=== PATIENT | male | born 1970 | race Caucasian/White ===

== ENCOUNTER 2018-06-18 10:47 | Emergency (ER) | payer MEDICAID ==
[~2018-06-18] VITALS: Ht 177.8 cm; Wt 66.4 kg
[~2018-06-18 10:47] MED LIST: CLIN-12 PO; CLIN300C85 PO; HYDR20OI TP; MUPI15CR TP; MUPI22OI TP; NO HOME MEDS
[2018-06-18 11:18] VITALS: BP 104/72
== END 2018-06-18 13:14 | disposition home or self-care (01) ==
LOC: ER 10:47
DX: S50.851A Superficial foreign body of right forearm, initial encounter (principal); F12.90 Cannabis use, unspecified, uncomplicated; Z59.0 Homelessness; Z56.0 Unemployment, unspecified; Z98.890 Other specified postprocedural states; Z88.6 Allergy status to analgesic agent; Z88.8 Allergy status to other drugs, medicaments and biological substances; Z79.2 Long term (current) use of antibiotics; Z79.899 Other long term (current) drug therapy; W45.8XXA Other foreign body or object entering through skin, initial encounter; Y93.89 Activity, other specified; Y92.89 Other specified places as the place of occurrence of the external cause; Y99.8 Other external cause status
CPT/HCPCS: 99281

== ENCOUNTER 2018-11-24 19:45 | Emergency (ER) | payer MEDICAID ==
[~2018-11-24] VITALS: Ht 177.8 cm; Wt 74.2 kg
[~2018-11-24 19:45] MED LIST changes: +CLIN-96 PO; -CLIN300C85 PO
[2018-11-24 19:53] VITALS: BP 131/81
== END 2018-11-24 21:20 | disposition home or self-care (01) ==
LOC: ER 19:45
DX: J30.2 Other seasonal allergic rhinitis (principal); F17.200 Nicotine dependence, unspecified, uncomplicated; F12.90 Cannabis use, unspecified, uncomplicated; Z56.0 Unemployment, unspecified; Z59.0 Homelessness; Z88.6 Allergy status to analgesic agent; Z79.899 Other long term (current) drug therapy
CPT/HCPCS: 99281

== ENCOUNTER 2019-05-27 19:06 | Emergency (ER) | payer MEDICAID ==
[~2019-05-27] VITALS: Ht 177.8 cm; Wt 68.2 kg
[~2019-05-27 19:06] MED LIST changes: +CLIN-90 PO; -CLIN-96 PO
[2019-05-27 19:16] VITALS: BP 141/74
[2019-05-27] MEDS ORDERED: penicillin G benzathine 1.2 million unit/2ml syringe IM ONE (20:15)
[2019-05-27] MEDS ORDERED: azithromycin 250mg tablet PO ONE (20:15)
[2019-05-27] MEDS ORDERED: CefTRIAXone 1000mg IM Kit (w/lidocaine diluent) IM ONE (20:15)
[2019-05-29 08:10] LABS: RPR Reactive (Non Reactive)
== END 2019-05-27 20:54 | disposition home or self-care (01) ==
LOC: ER 19:07
DX: K40.90 Unilateral inguinal hernia, without obstruction or gangrene, not specified as recurrent (principal); F17.200 Nicotine dependence, unspecified, uncomplicated; F12.90 Cannabis use, unspecified, uncomplicated; Z59.0 Homelessness; Z56.0 Unemployment, unspecified; Z88.6 Allergy status to analgesic agent; Z88.8 Allergy status to other drugs, medicaments and biological substances; Z79.899 Other long term (current) drug therapy
CPT/HCPCS: 36415; 86592; 87491; 87591; 96372; 99283; J0561; J0696

== ENCOUNTER 2022-12-23 20:12 | Emergency (ER) | payer MEDICAID ==
[~2022-12-23] VITALS: Ht 177.8 cm; Wt 61.0 kg
[~2022-12-23 20:12] MED LIST changes: -CLIN-90 PO; +CLIN-97 PO
[2022-12-23] MEDS ORDERED: sulfamethoxazole/trimethoprim DS (800/160mg) tablet PO ONE (21:30)
[2022-12-23] MEDS ORDERED: amox tr/potassium clavulanate 875/125mg TAB PO ONE (21:30)
[2022-12-23 21:56] LABS: BASOPHILS # (AUTO) 0.1 X10'3 (0-0.2); BASOPHILS % (AUTO) 1.5 % (0-1); EOSINOPHILS % (AUTO) 0.3 % (0-6); HEMATOCRIT 37.9 % (42.0-52.0); HEMOGLOBIN 12.7 g/dl (14.0-17.9); LYMPHOCYTES # (AUTO) 1.5 X10'3 (1.1-4.8); LYMPHOCYTES % (AUTO) 24.8 % (21-51); MEAN CORPUSCULAR HGB CONC 33.6 g/dL (33.0-36.5); MEAN CORPUSCULAR VOLUME 89.3 FL (78-98); MEAN PLATELET VOLUME 7.7 FL (7.4-10.4); MONOCYTES # (AUTO) 0.6 X10'3 (0-0.9); MONOCYTES % (AUTO) 10.2 % (2-12); NEUTROPHILS # (AUTO) 3.9 X10'3 (1.8-7.7); NEUTROPHILS % (AUTO) 63.2 % (42-75); PLATELET COUNT 222 X10'3 (140-440); RED BLOOD COUNT 4.25 X10'6 (4.70-6.10); RED CELL DISTRIBUTION WIDTH 13.9 % (11.5-14.5); WHITE BLOOD COUNT 6.1 X10'3 (4.5-11.0)
[2022-12-23] MEDS ORDERED: AMOX-580 PO (22:00)
[2022-12-23] MEDS ORDERED: SULF1TAB49 PO (22:00)
[2022-12-23 22:01] LABS: ALANINE AMINOTRANSFERASE 44 U/L (12-78); ALBUMIN 2.9 G/DL (3.4-5.0); ALKALINE PHOSPHATASE 81 IU/L (46-116); ANION GAP 9 (8-16); ASPARTATE AMINO TRANSFERASE 21 U/L (10-37); BILIRUBIN,TOTAL 0.3 MG/DL (0.1-1.0); BLOOD UREA NITROGEN 18 MG/DL (7-18); BUN/CREATININE RATIO 20.7 (10.0-20.0); CALCIUM 8.5 MG/DL (8.5-10.1); CHLORIDE 101 MMOL/L (99-107); CREATININE 0.87 MG/DL (0.60-1.10); GLUCOSE 134 MG/DL (70-104); POTASSIUM 3.6 MMOL/L (3.5-5.1); SODIUM 139 MMOL/L (135-145); TOTAL CARBON DIOXIDE 28.6 MMOL/L (24-32); TOTAL PROTEIN 5.8 G/DL (6.4-8.2); eGFR > 90 ML/MIN
[2022-12-23 22:12] VITALS: BP 145/95
== END 2022-12-23 22:13 | disposition home or self-care (01) ==
LOC: ER 20:12
DX: L03.113 Cellulitis of right upper limb (principal); F12.90 Cannabis use, unspecified, uncomplicated; Z79.899 Other long term (current) drug therapy; Z59.00 Homelessness unspecified; Z56.0 Unemployment, unspecified; Z98.890 Other specified postprocedural states; Z88.8 Allergy status to other drugs, medicaments and biological substances; Z79.2 Long term (current) use of antibiotics; F17.210 Nicotine dependence, cigarettes, uncomplicated
CPT/HCPCS: 36415; 73090; 80053; 85025; 99284

== ENCOUNTER 2023-01-13 20:43 | Emergency (ER) | payer MEDICAID ==
[~2023-01-13] VITALS: Ht 177.8 cm; Wt 61.0 kg
[~2023-01-13 20:43] MED LIST changes: +AMOX-580 PO
[2023-01-13 20:47] VITALS: BP 137/87
[2023-01-13] MEDS ORDERED: cephalexin 250mg capsule PO ONE (21:15)
[2023-01-13] MEDS ORDERED: bacitracin 15gm ointment TP ONE (21:15)
[2023-01-13] MEDS ORDERED: CEPH-585 PO (21:17)
== END 2023-01-13 21:25 | disposition home or self-care (01) ==
LOC: ER 20:43
DX: L03.113 Cellulitis of right upper limb (principal); L03.114 Cellulitis of left upper limb; L03.115 Cellulitis of right lower limb; L03.116 Cellulitis of left lower limb; F12.90 Cannabis use, unspecified, uncomplicated; Z88.6 Allergy status to analgesic agent; Z88.8 Allergy status to other drugs, medicaments and biological substances
CPT/HCPCS: 99283

== ENCOUNTER 2023-12-26 17:28 | Emergency (ER) | payer MEDICAID ==
[~2023-12-26] VITALS: Ht 177.8 cm; Wt 60.0 kg
[~2023-12-26 17:28] MED LIST changes: -AMOX-580 PO; +CEPH-585 PO
[2023-12-26 17:52] VITALS: BP 107/71; PULSE 53; RESP 16; O2SAT 97
[2023-12-26 18:27] VITALS: TEMP 97.4
== END 2023-12-26 18:31 | disposition home or self-care (01) ==
LOC: ER 17:29
DX: Z00.00 Encounter for general adult medical examination without abnormal findings (principal); Z88.6 Allergy status to analgesic agent; Z79.899 Other long term (current) drug therapy; Z79.2 Long term (current) use of antibiotics
CPT/HCPCS: 99281

== ENCOUNTER 2024-02-12 11:30 | Emergency (ER) | payer MEDICAID ==
[~2024-02-12] VITALS: Ht 172.7 cm; Wt 63.6 kg
[~2024-02-12 11:30] MED LIST changes: -CEPH-585 PO
[2024-02-12 13:51] VITALS: BP 150/89; PULSE 70; RESP 16; TEMP 96.9; O2SAT 99
== END 2024-02-12 13:53 | disposition home or self-care (01) ==
LOC: ER 11:30
DX: B34.9 Viral infection, unspecified (principal); Z20.822 Contact with and (suspected) exposure to COVID-19; F12.90 Cannabis use, unspecified, uncomplicated; Z88.6 Allergy status to analgesic agent; Z88.8 Allergy status to other drugs, medicaments and biological substances; Z79.2 Long term (current) use of antibiotics; Z79.899 Other long term (current) drug therapy
CPT/HCPCS: 36415; 87811; 99283

== ENCOUNTER 2025-03-05 12:48 | Emergency (ER) | payer MEDICAID ==
[~2025-03-05] VITALS: Ht 177.8 cm; Wt 61.4 kg
[~2025-03-05 12:48] MED LIST changes: +CLIN-224 PO; -CLIN-97 PO
[2025-03-05] MEDS ORDERED: PERM60CR4 TP (13:29)
[2025-03-05] MEDS ORDERED: HYDR-3686 PO (13:29)
[2025-03-05] MEDS ORDERED: KEN0.1O TOP (13:29)
--- NOTE | 2025-03-05 13:32 | Physician Documentation ---
History of Present Illness ~ Stated Complaint: POSS SCABIES Time Seen by MD: 13:26 Primary Medical Doctor: None HPI This is a 54-year-old male who presents to the emergency department due to concerns for scabies. He reports an itchy rash that is mostly impacting his back in his hands. Notes that the itching is worse at night admits to being on housed denies chills or fever, chest pain or shortness of breath,nausea or vomiting, abdominal pain. Medication Reconciliation Allergies: Coded Allergies: bupropion HCl (Verified Allergy, Unknown, 02/12/24) ibuprofen (Verified Allergy, Unknown, 02/12/24) Scheduled Clindamycin HCL* (Clindamycin HCL*), 1 CAP PO Q6H Clindamycin Hcl (Clindamycin Hcl), 300 MG PO QID Hydrocortisone (HYDROCORTISONE ointment), 1 APPLIC TP BID Mupirocin (Bactroban), 1 APPLIC TP TID Mupirocin Calcium (Bactroban), 1 APPLIC TP TID Triamcinolone Acetonide 0.1% Crm* (Kenalog 0.1% Crm*), 1 APPLIC TOP Q12H Scheduled PRN Hydroxyzine Hcl* (Atarax*), 1 TAB PO Q6H PRN for ITCHING Permethrin (Permethrin), 60 GM TP HSMR1 PRN for 1 Miscellaneous Medications Home Med List (No Home Medications), (Reported) Past Medical History Past Medical History: Hernia, Cellulitis, *INFECTIOUS DZ* Past Surgical History: noncontributory, other Other Past Surgical History: Inguinal hernia repair Other Past Family History: NONE Alcohol Use: None Drug Use: marijuana Lives In: Homeless Occupation: unemployed Review of Systems ROS As stated above in the HPI, otherwise all systems are reviewed and negative. Physical Exam Physical Exam General: Alert, no apparent distress. Neck: Full range of motion. Respiratory: Lungs clear, no respiratory distress. Chest: No accessory muscle use. Cardiovascular: Regular rate and rhythm, no murmurs. Gastrointestinal: Soft, nontender, nondistended. Bowels sounds present. Extremities: Normal range of motion, no deformity. Neurologic: Oriented x4. Psychiatric: Normal mood and affect. Skin: Normal color, warm and dry. No edema, no ecchymosis. Erythematous rash with scratch owusu to upper back and shoulders, bilat hands. Medical Decision Making Differential Dx:Considerations: Include: Atopic dermatitis, Candidiasis, Contact dermatitis, Herpes zoster, Herpes simplex, Hidradenitis suppurativa, Impetigo, Intertrigo, Osteomyelitis, Pediculosis, Pityriasis rosea, Psoriaisis, Scabies, Urticaria, Viral exanthema Additional Comment This patient presents with concerns for scabies. He is well appearing with no other concerns or symptoms. He will be treated for both scabies and contact dermatitis as the diagnosis is unclear. Departure Time of Disposition: 13:27 Disposition: HOME / SELF CARE / HOMELESS Impression: Primary Impression: Scabies Condition: Stable Discharge Instructions: Scabies, Adult Additional Instructions: You are being treated for scabies versus contact dermatitis. Take the medications as prescribed. Apply the premethrin to your entire body avoiding mouth and anus tonight. Go to sleep and then wash it off about 10 hrs later. Followup with your primary care provider or return if worse. Referrals: NO PRIMARY CARE PROVIDER (PCP) Prescriptions Hydroxyzine Hcl* (Atarax*) 25 Mg Tablet 1 TAB PO Q6H PRN for ITCHING for 10 Days, #30 TAB Prov: FEROZ ZARATE NP 03/05/25 Triamcinolone Acetonide 0.1% Crm* (Kenalog 0.1% Crm*) 1 Applic Tube 1 APPLIC TOP Q12H for 10 Days, #80 GM Prov: FEROZ ZARATE NP 03/05/25 Permethrin (Permethrin) 5 % Cream.gm. 60 GM TP HSMR1 PRN for 1, #2 GM 3 Refills Prov: FEROZ ZARATE NP 03/05/25 Education Educated: Patient Educated regarding: diagnosis, treatment, prognosis, need for follow up Signature Scribe Signature: x Attestation: The note accurately reflects work and decisions made by me.Feroz Raygoza NP 03/05/25 13:30 FEROZ ZARATE NP Mar 05, 2025 13:31
[2025-03-05 13:34] VITALS: BP 146/102; PULSE 76; RESP 18; TEMP 97.9; O2SAT 98
== END 2025-03-05 13:43 | disposition home or self-care (01) ==
LOC: ER 12:49
DX: B86 Scabies (principal); F12.90 Cannabis use, unspecified, uncomplicated; Z88.6 Allergy status to analgesic agent; Z88.8 Allergy status to other drugs, medicaments and biological substances; Z79.899 Other long term (current) drug therapy; Z56.0 Unemployment, unspecified; Z59.00 Homelessness unspecified
CPT/HCPCS: 99283